=== PATIENT | female | born 1960 | race Caucasian/White ===

== ENCOUNTER 2018-01-08 10:06 | Day surgery (SDC) | payer OTHER ==
[~2018-01-08] VITALS: Ht 157.5 cm; Wt 104.3 kg
[2018-01-08] MEDS ORDERED: BUPIVACAINE /PF 0.25% 30 ML VIAL INJ ONE (10:07)
[2018-01-08] MEDS ORDERED: methylPREDNISolone ACETATE 80 MG/ML IM ONE (10:07)
[2018-01-08] MEDS ORDERED: LIDOCAINE 2%, 20 ML MDV INJ ONE (10:07)
[2018-01-08] MEDS ORDERED: MIDAZOLAM HCL 5 MG/5 ML VIAL ONE (10:39)
[2018-01-08] MEDS ORDERED: DIPHENHYDRAMINE INJ 50 MG/ML VIAL ONE (10:39)
[2018-01-08] MEDS ORDERED: MIDAZOLAM HCL 5 MG/5 ML VIAL IVP ONE (11:30)
[2018-01-08] MEDS ORDERED: DIPHENHYDRAMINE INJ 50 MG/ML VIAL IVP ONE (11:32)
[2018-01-08] MEDS ORDERED: IOHEXOL 50 ML IV ONE (11:41)
[2018-01-08 15:08] VITALS: BP_SYST 129
== END 2018-01-08 13:00 | disposition home or self-care (01) ==
LOC: SDS 10:06
PROVIDERS: ATTEND Internal Medicine
DX: M51.16 Intervertebral disc disorders with radiculopathy, lumbar region (principal); E11.9 Type 2 diabetes mellitus without complications; Z79.899 Other long term (current) drug therapy
CPT/HCPCS: 62323; J1040; J1200; J2001; J2250; J3490; J7120; Q9967